=== PATIENT | male | born 1955 | race Hispanic/Latino ===

== ENCOUNTER 2017-02-24 17:54 | Inpatient (IN) ==
[2017-02-24] MEDS ORDERED: NS 1,000 ML IV PRN (18:25)
--- NOTE | 2017-02-24 18:31 | PROVIDER DOCUMENTATION ---
HPI-Neurological Disorder - General Chief Complaint: Stroke-Like Symptoms Stated Complaint: STROKE SX Time Seen by Provider: 02/24/17 18:19 Source: family (SON AT BEDSIDE FOR INTERPRETING) Allergies/Adverse Reactions: Patient Allergies Allergy/AdvReac Type Severity Reaction Status Date / Time No Known Allergies Allergy Verified 02/22/17 13:10 Home Medications: Home Medication List Medication Instructions Recorded Confirmed Last Taken Type ATORVAstatin [Lipitor] 40 mg PO QHS #30 tablet 02/27/17 Unknown Rx Aspirin 325 mg PO DAILY #30 tablet 02/27/17 Unknown Rx - History of Present Illness-Neuro Nature of Presenting Problem: REPORTS, "ABOUT 8 LAST NIGHT HE WAS COMPLAINING ABOUT HIS LEFT SIDE WAS NUMB. HE'S BEEN REALLY SLOW WITH HIS SPEECH AND HIS HEAD HURTS. HIS VISION IS BLURRED IN THE LEFT EYE." Headache Location: reports: frontal (left frontal pain) Severity: reports: mild Onset/Duration: reports: last night Timing: reports: still present Context: reports: none Approximate time patient was last seen normal?: 20:00 (LAST NIGHT) Character of Altered Mental Status: reports: N/A Any recent trauma/injury?: reports: none Character of Deficits: reports: new weakness (left side - arm and leg) New weakness or altered sensation location:: reports: LUE, LLE, left facial Gait Baseline: walks without assistance Associated Symptoms: reports: other (PER FAMILY "SPEECH IS SLOW.") Similar Symptoms Previously?: No Recently seen or treated by another doctor?: No Review of Systems - Adult - REVIEW OF SYSTEMS - ADULT Constitutional: reports: no symptoms reported Eyes: reports: no symptoms reported Ears, Nose, Mouth & Throat: reports: no symptoms reported Cardiovascular: reports: no symptoms reported Respiratory: reports: no symptoms reported Gastrointestinal: reports: no symptoms reported Genitourinary: reports: no symptoms reported Musculoskeletal: reports: no symptoms reported Integumentary: reports: no symptoms reported Neurological: reports: see HPI Psychiatric: reports: no symptoms reported Endocrine: reports: no symptoms reported Hematologic/Lymphatic: reports: no symptoms reported Allergic/Immunologic: reports: no symptoms reported All Other Systems: Reviewed and Negative Past History - Adult - PAST MEDICAL HISTORY-ADULT Review of Records: reports: Old Records Reviewed, Nursing Assessment Review, Medications Reviewed Major Childhood Illnesses: reports: denies history Cardiovascular: reports: HTN, hyperlipidemia Respiratory: reports: denies history Gastrointestinal: reports: denies history Obstetrical/Gynecological: reports: denies history Genitourinary: reports: denies history Musculoskeletal: reports: other (LEFT SHOULDER SURGERY WITH PAIN AND LIMITED ROM SINCE SURGERY WHICH WAS 1999) Neurological: reports: denies history Endocrine/Immune: reports: Diabetes Other Conditions: reports: denies history - PRIOR SURGERIES/PROCEDURES Surgical/Procedure History: reports: other (LEFT SHOULDER REPAIR, HERNIA REPAIR X 4) - IMMUNIZATION STATUS Childhood Immunizations: See Nurse Assessment Flu Vaccine: See Nurse Assessment - FAMILY HISTORY Family History: reviewed, not pertinent - SOCIAL HISTORY Smoking: denies Substance Use: none/never Alcohol Use Frequency: never Living Situation: family Physical Exam- Neurological - Physical Exam-Neuro Initial Vital Signs Reviewed: Yes General Appearance: appears well, mild distress Eye Exam: bilateral eye: normal inspection, PERRL, EOMI (C/O BLURRED VISION SINCE LAST NIGHT) HENMT: normocephalic/atraumatic, moist mucous membranes, normal ENT inspection, TMs normal, pharynx normal Head Injury: no evidence of injury Neck: non-tender, full range of motion, supple Respiratory: chest non-tender, lungs clear, normal breath sounds, no pleuratic chest pain, no respiratory distress, no accessory muscle use Cardiovascular: normal peripheral pulses, regular rate, rhythm, no edema, no gallop, no JVD, no murmur Abdominal Exam: normal bowel sounds, non tender, soft, no organomegaly, no pulsatile mass Lymphatic: no adenopathy Peripheral Pulses: radial (R): 3+, radial (L): 3+ Extremity: other (LEFT NECK/ARM/SHOULDER PAIN THAT IS CHRONIC SINCE SURGERY IN 1999) 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 negative: facial asymmetry, facial droop Coordination/Gait: normal finger to nose (ON RIGHT . PAIN WITH MOVEMENT OF LEFT SHOULDER) Motor/Sensory: no motor deficit, no sensory deficit, no pronator drift Neurologic: grossly normal, focal weakness (LEFT LOWER EXTREMITY WEAKNESS. LEF GRASP <RIGHT) Integumentary: normal color, normal turgor, warm/dry Psych/Mental Status: normal mood/affect, normal thought content, normal thought process, oriented x 3 - Glascow Coma Scale Best Eye Response: (4) open spontaneously Best Verbal Response: (5) oriented Best Motor Response: (6) obeys commands Total Glascow Score: 15 Progress - PLAN OF CARE/RESULTS Progress/Plan/Lab Results: Orders Category Date Time Status Admit - [facility] Routine AdmDCTranf 02/24/17 20:24 Ordered Misc. NRSG Communication Order DIRECTED Care 02/24/17 18:25 Completed Oxygen Therapy- ED Nursing DIRECTED Care 02/24/17 18:25 Completed Saline Loc NOW Care 02/24/17 18:25 Completed CHEST-PORTABLE [RAD] Stat Exams 02/24/17 18:25 Completed HEAD W/O CONTRAST [CT] Stat Exams 02/24/17 18:06 Completed SHOULDER-LEFT [RAD] Stat Exams 02/24/17 18:59 Completed CBC WITH ELECTRONIC DIFF [HEME] Stat Lab 02/24/17 18:10 Completed COMPREHENSIVE METABOLIC PANEL [CHEM] Stat Lab 02/24/17 18:[address]IME WITH INR PL [COAG] Stat Lab 02/24/17 18:[address] [COAG] Stat Lab 02/24/17 18:10 Completed TROPONIN T Stat Lab 02/24/17 18:[address] [URINALYSIS] Stat Lab 02/24/17 19:00 Completed URINE DRUG SCREEN PL Stat Lab 02/24/17 19:00 Completed URINE MICROSCOPIC [URINALYSIS] Stat Lab 02/24/17 19:00 Completed 0.9% Sodium Chloride Inj [Ns] 1,000 ml Med 02/24/17 20:28 Active IV 100 mls/hr 0.9% Sodium Chloride Inj [Ns] 1,000 ml Med 02/24/17 18:25 Discontinued IV As Directed Acetaminophen [Tylenol] Med 02/24/17 20:14 Discontinued 650 mg PO NOW ONE EKG [EKG] Stat Ther 02/24/17 18:25 Draft Transfer/Admit Order [TRANSFER] Routine Transfer 02/24/17 20:28 Completed Result Diagrams: 02/26/17 05:03 02/26/17 05:03 - XRAY 1 XRAY Study: Chest Impression: Normal (NORMAL CHEST XRAY PER RADIOLOGY. NO PNEUMONIA PER RADILOGY REPORT IN EMR) - CT/MRI 1 CT Study: Head Impression: Normal CT Results: NO SAH, NO EPIDURAL OR SUBDURAL HEMATOMA. NO HEMORRHAGE. NEGATIVE CT SCAN - CONSULTS/PCP/HOSPITALIST Notification #1 *Consult/PCP/Hospitalist*: DR. ORTEGA Time Discussed: 20:11 Reason/Comments: ADMIT CVA NO NOT GIVE HEPARIN SQ Consult Disposition: Admit Departure - Departure Date of Disposition Decision: 02/24/17 Time of Disposition Decision: 20:10 DIAGNOSIS: CVA (cerebral vascular accident) Disposition: HOME 01 Certified Medical Emergency: Emergent Condition: Stable - Critical Care Note This patient required my direct & personal management of CC.: No Attestation - Physician/ PRAKASH Attestation Patient care was provided by Advanced Practice Provider:: Yes Advanced Practice Provider:: Nicky Hopkins Advanced Practice Provider documentation review:: The Mid-level provider documentation, treatment plan and medical decision making was reviewed by the physician who agrees with all treatment and medical decision making by the MLP. The physician spent face to face time with patient:: Yes Advanced Practice Provider documentation review:: Supervising physician onsite and consulted in the evaluation and care of this patient. The physician did have a face to face encounter with the patient.
[2017-02-24 18:39] LABS: MANUAL DIFF NEEDED? NO
[2017-02-24 18:43] LABS: BASO% 1.4 % (0.0-0.8); EOS# 0.13 X1000 (0.0-0.7); EOS% 1.8 % (0.0-10.0); HEMATOCRIT 45.2 % (42.0-52.0); HEMOGLOBIN 15.7 g/dL (14.0-18.0); IMM GRAN# 0.02 X1000 (0.0-0.04); IMM GRAN% 0.3 % (0.0-0.5); LYMPH# 3.11 X1000 (1.2-3.4); LYMPH% 42.1 % (20.5-51.1); MCH 31.5 PG (27-31); MCHC 34.7 g/dL (33-37); MCV 90.8 FL (81-99); MONO# 0.73 X1000 (0.11-0.59); MONO% 9.9 % (1.7-9.3); NEUT% 44.5 % (42.2-75.2); PLT 168 X1000 (130-400); RBC 4.98 XMIL (4.7-6.1)
--- NOTE | 2017-02-24 18:52 | Diag Imaging Result Doc PS360 ---
EXAM: HEAD W/O CONTRAST HISTORY: stroke like sym TECHNIQUE: CT brain without. Dose reduction protocol. COMPARISON: None. FINDINGS: No parenchymal hemorrhage. No epidural or subdural hematoma. No subarachnoid hemorrhage. No mass identified on this noncontrasted exam. No hydrocephalus. No sinus opacification. IMPRESSION: No hemorrhage. Negative brain CT without contrast. Electronically signed by Javier Butts 02/24/2017 6:49 PM
--- NOTE | 2017-02-24 19:01 | Diag Imaging Result Doc PS360 ---
EXAM: CHEST-PORTABLE HISTORY: LEFT SIDE WEAKNESS POSS CVA TECHNIQUE: COMPARISON: 02/22/2017 FINDINGS: The lungs are well expanded. The heart is not enlarged. The vessels are not distended. No pneumonia. No pleural effusions identified. IMPRESSION: Negative chest. Electronically signed by Javier Butts 02/24/2017 6:59 PM
[2017-02-24 19:08] LABS: AGAP 11; ALBUMIN 4.1 g/dL (3.5-5.0); ALKALINE PHOSPHATASE 69 U/L (32-122); BUN 16 mg/dL (8-22); CHLORIDE 104 mmol/L (98-107); COSMO 277; GOT 21 U/L (10-34); GPT 15 U/L (10-44); POTASSIUM 4.3 mmol/L (3.5-5.1); SODIUM 138 mmol/L (136-145); TCO2 23 mmol/L (25-35)
[2017-02-24 19:12] LABS: URINE SOURCE CLEAN CATCH
[2017-02-24 19:16] LABS: INR 0.94 (0.86-1.15); PROTIME 13.3 Seconds (12.1-15.5)
[2017-02-24 19:17] LABS: PTT PL 31.8 Seconds (22.6-43.9)
[2017-02-24 19:21] LABS: BILIRUBIN URINE NEGATIVE (NEGATIVE); BLOOD URINE 3+ (NEGATIVE); CLARITY CLEAR (CLEAR); COLOR YELLOW; GLUCOSE URINE NEGATIVE (NEGATIVE); LEUKOCYTES URINE NEGATIVE (NEGATIVE); NITRITE URINE NEGATIVE (NEGATIVE); PH URINE 6.5; PROTEIN URINE NEGATIVE (NEGATIVE); SP GRAVITY URINE 1.005; URINE MICROSCOPIC NEEDED? YES; UROBILINOGEN URINE NORMAL
[2017-02-24 19:22] LABS: UR AMPHETAMINES QUAL NONE DETECTED (NONE DETECT); UR BARBITUATES QUAL NONE DETECTED (NONE DETECT); UR BENZODIAZEPIN QUAL NONE DETECTED (NONE DETECT); UR CANNABINOIDS QUAL NONE DETECTED (NONE DETECT); UR COCAINE QUAL NONE DETECTED (NONE DETECT); UR MDMA QUAL NONE DETECTED (NONE DETECT); UR METHADONE QUAL NONE DETECTED (NONE DETECT); UR METHAMPHETAMINE QUAL NONE DETECTED (NONE DETECT); UR OPIATES QUAL NONE DETECTED (NONE DETECT); UR OXYCODONE QUAL NONE DETECTED (NONE DETECT); UR PCP QUAL NONE DETECTED (NONE DETECT); UR TCA QUAL NONE DETECTED (NONE DETECT)
[2017-02-24 19:24] LABS: URINE EPITHELIAL CELLS <10 /HPF (<10); URINE RBC <10 /HPF (<10); URINE WBC <10 /HPF (<10)
--- NOTE | 2017-02-24 19:45 | Diag Imaging Result Doc PS360 ---
EXAM: SHOULDER-LEFT HISTORY: pain left shou worsng since last night TECHNIQUE: Shoulder three views including an axillary Y-view COMPARISON: 07/07/2015 FINDINGS: No fracture. No dislocation. No separation at the acromioclavicular joint. There has been prior surgery to the shoulder. IMPRESSION: No acute abnormality. Electronically signed by Javier Butts 02/24/2017 7:42 PM
[2017-02-24] MEDS ORDERED: TYLENOL PO ONE (20:14)
--- NOTE | 2017-02-24 21:37 | EKG Report ---
Test Performed on : 02/24/2017 7:50:20 PM Test Reason : CP Blood Pressure : / mmHG Vent. Rate : 058 BPM Atrial Rate : 058 BPM P-R Int : 164 ms QRS Dur : 100 ms QT Int : 406 ms P-R-T Axes : 067 042 058 degrees QTc Int : 398 ms Sinus bradycardia. Incomplete right bundle branch block Borderline ECG When compared with ECG of 22-FEB-2017 16:35, Incomplete right bundle branch block is now present Unconfirmed Result
[2017-02-24] MEDS: NS 1,000 ML IV PRN (22:52)
[2017-02-25] MEDS ORDERED: TYLENOL PO PRN (06:21)
[2017-02-25] MEDS ORDERED: ZOFRAN IV PRN (06:21)
--- NOTE | 2017-02-25 12:28 | Diag Imaging Result Doc PS360 ---
MRI BRAIN W/O CONTRAST - 02/25/2017 INDICATION: cva COMPARISON: Head CT 02/24/2017 FINDINGS: There is no area of restricted diffusion. The ventricles and sulci are normal in size and contour. No intracranial mass or hemorrhage. Midline structures including the optic chiasm and pituitary are normal. IMPRESSION: Negative exam. Electronically signed by Ernesto Leung 02/25/2017 12:26 PM
[2017-02-25] MEDS ORDERED: MOTRIN PO PRN (13:02)
[2017-02-25] MEDS ORDERED: TORADOL IV ONE ×2 (13:02→13:42)
--- NOTE | 2017-02-25 19:26 | HISTORY AND PHYSICAL ---
CHIEF COMPLAINT: Numbness to the left side of his face, slow speech. HISTORY OF PRESENT ILLNESS: This is a 61-year-old male who presented to the emergency room complaining of about 23 hours of numbness to the left side of his face, slow speech and blurred vision in his left eye. He complained of a left frontal headache that has been consistent throughout this time. He did have some weakness to his left arm and left leg. CT scan was performed which revealed no hemorrhage, and a negative brain CT without contrast. Chest x-ray was performed which was negative. He was given Toradol for left shoulder pain and admitted for further evaluation and treatment. PAST MEDICAL HISTORY: Diabetes, hyperlipidemia, hypertension. PAST SURGICAL HISTORY: Left shoulder pain and a hernia repair. SOCIAL HISTORY: He smokes about a half a pack a day. Denies alcohol or illicit drug use. ALLERGIES: No known drug allergies. HOME MEDICATIONS: None. REVIEW OF SYSTEMS: A 14-point review of systems is discussed with the patient, with the son and interpreting. Pertinent positives are stated in the HPI. He denied syncope, dizziness, chest pain, palpitations, shortness of breath, cough, fever, chills, nausea, vomiting, diarrhea, constipation, black or bloody vomitus, black or bloody stools. PHYSICAL EXAMINATION: GENERAL: This is a 61-year-old male who is sitting up in the bed, in no distress. VITAL SIGNS: Blood pressure is 113/59 with a heart rate of 56, respirations are 17, temperature is 98.4 degrees with a room air saturations are 95% to 100%. HEENT: Head is normocephalic, atraumatic. Pupils are equal, round, react to light. EOMs are intact. Sclerae anicteric. Mucous membranes are moist. NECK: Supple. Trachea midline. CARDIOVASCULAR: Regular rate and rhythm. S1 and S2 appreciated. PULMONARY: Breath sounds are clear with no increased work of breathing noted. Chest does rise and fall symmetrically with respiration. GASTROINTESTINAL: Abdomen is soft, nontender, nondistended with bowel sounds in all 4 quadrants. BACK: No CVAT. No spinal tenderness. MUSCULOSKELETAL: Good range of motion to right arm and right leg. Left upper extremity is limited due to prior injury, surgery with chronic pain. EXTREMITIES: No clubbing, cyanosis, or edema. Calves are nontender. Pulses are palpable x4. NEUROLOGIC: Pupils equal, round, react to light. He has no facial droop. Forehead is spared. Equal nasal flaring. No tongue or uvular deviation. He has equal shoulder shrug due to pain and injury to his left shoulder; this is chronic. He has 5/5 [id number] on the right. He is unable to perform on the left secondary to pain. He does attempt to the point of pain and then stops. Head Lineman are right greater than left. He has 5/5 on the right. About 3/5 on the left. He has 5/5 muscle strength on the right lower extremity, about 3/5 on the left. DIAGNOSTICS: WBC is 7.3 with hemoglobin 15.7, hematocrit 45.2, and platelets of 168,000. Sodium is 138, potassium 4.3, BUN 16, creatinine 1, with a glucose of 100. Urinalysis is essentially negative with urine drug screen negative. CT of the head reveals no acute processes, as well as chest. Shoulder x-ray on the left reveals no acute abnormality. ASSESSMENT AND PLAN: 1. Probable cerebrovascular accident with left-sided weakness. 2. Diabetes mellitus. 3. Hypertension. 4. Hyperlipidemia. 5. Tobacco use and abuse. 6. Chronic left shoulder pain. The patient will be admitted to the hospital. He will be placed on telemetry. Neuro checks as per protocol. We will obtain a MRI of the brain, as well as a carotid ultrasound. We will start Lipitor daily. The patient's blood sugar is 100 and talking with the family, they state that there was a past diagnosis of diabetes, although he is on no medications. We will monitor daily labs and if needed, we can treat blood sugars. We will consult Physical Therapy. We will consult Learning Disabilities Resource Teacher for discharge planning. For deep vein thrombosis prophylaxis, we will use Lovenox and for gastrointestinal prophylaxis, Prilosec. We will give Toradol for the shoulder pain, as he does take NSAIDs at home with relief. Further treatments pending hospital course. Dictated by REGGIE Faith for Jesus Hilliard MD cc: REGGIE Faith MD
[2017-02-25] MEDS: LIPITOR PO SCH (20:47)
[2017-02-26 06:12] LABS: HEMATOCRIT 41.4 % (42.0-52.0); HEMOGLOBIN 14.1 g/dL (14.0-18.0); MCH 31.3 PG (27-31); MCHC 34.1 g/dL (33-37); MCV 91.8 FL (81-99); MPV 11.2 FL (7.4-10.4); RBC 4.51 XMIL (4.7-6.1)
[2017-02-26] MEDS: PRILOSEC PO SCH (06:15)
[2017-02-26 06:50] LABS: AGAP 9; ALBUMIN 3.7 g/dL (3.5-5.0); ALKALINE PHOSPHATASE 56 U/L (32-122); BUN 18 mg/dL (8-22); CALCIUM 8.3 mg/dL (8.8-10.2); CHLORIDE 109 mmol/L (98-107); COSMO 283; GOT 19 U/L (10-34); GPT 16 U/L (10-44); HDL 29 mg/dL (35-55); LDL 117 mg/dL; POTASSIUM 4.3 mmol/L (3.5-5.1); SODIUM 141 mmol/L (136-145); TCO2 23 mmol/L (25-35); TRIGLYCERIDES 141 mg/dL (39-160); VLDL 28 mg/dL
[2017-02-26] MEDS ORDERED: ASPIRIN PO SCH (09:00)
[2017-02-26] MEDS: LOVENOX SUBQ SCH (09:38)
[2017-02-26] MEDS: ASPIRIN PO SCH (09:38)
--- NOTE | 2017-02-26 10:51 | Extremity Venous Study ---
EXAM: Carotid Ultrasound HISTORY: cva TECHNIQUE: COMPARISON: None. FINDINGS: Right: There is normal flow in the common carotid artery. No stenosis. Normal flow in the internal carotid artery. Peak systolic velocity in the internal carotid artery is 66 cm/s. The ICA/CCA ratio is 0.60. There is antegrade flow both vertebral arteries Left: There is normal flow in the left common carotid artery. No stenosis. There is a tiny amount of plaque in the proximal internal carotid artery. Peak systolic velocity in the internal carotid artery is only 74 cm/s. The ICA/CCA ratio is 0.97 IMPRESSION: Mild stenosis within the proximal left internal carotid artery of less than 40%. Electronically signed by Javier Butts 02/26/2017 10:49 AM
--- NOTE | 2017-02-26 12:41 | CONSULTATION ---
DATE OF CONSULTATION: 02/26/2017 INDICATION FOR THE CONSULTATION: Relative bradycardia. HISTORY OF PRESENT ILLNESS: Mr. Ramirez is a 61-year-old male with a past medical history of diabetes, hypertension, and hyperlipidemia. He presented for evaluation of numbness of the left side of his face, slurred speech, and blurred vision in his left eye. Since that time period these symptoms have all resolved. In addition, he had a brain MRI performed yesterday that has been unremarkable. 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 These all occurred at rest. He has not been symptomatic from this with shortness of breath or with any sort of lightheadedness or passing out spells. He is not aware of any previous episodes of syncope. PAST MEDICAL HISTORY: 1. Diabetes. 2. Hypertension. 3. Hyperlipidemia. SOCIAL HISTORY: He lives at home with his family. He does smoke. No alcohol. No illicit drugs. FAMILY HISTORY: Significant for hypertension. REVIEW OF SYSTEMS: A 10 system review of systems is negative except for those things mentioned in the HPI. PHYSICAL EXAMINATION: Vital signs: During this hospitalization he has been afebrile. His heart rates have been documented in the 40s to 60s. His blood pressure is 101/76. General: He is in no acute distress. HEENT: Oropharynx is moist. Normal dentition. Eye examination shows pink conjunctivae, white sclerae. Neck: Examination shows no obvious thyromegaly or thyroid tenderness. Cardiovascular: He is in a regular rate and rhythm. He has no obvious murmurs. He has no S3. He has no lower extremity edema. Chest: Clear bilaterally. No increased work of breathing. Abdomen: Soft, nontender, nondistended. He has no obvious organomegaly. Skin Exam: Warm and dry throughout without any rashes. Neurological: He is moving all extremities well. No obvious lateralizing deficits. PERTINENT DATA: His carotid ultrasound shows mild stenosis within the proximal left internal carotid artery of less than 40%. Brain MRI results were reviewed. He had an ECG on 02/24 at 1950 showing sinus rhythm, rate of 58 beats per minute. His lab data shows a white count of 5.7. His hematocrit is 41, platelet count 148,000. Sodium 141, potassium 4.3. His BUN is 18, creatinine 0.7. His LDL was 117. He has not had a TSH checked as of yet. ASSESSMENT: Relative bradycardia. PLAN: I will check a TSH. If he has not had an echo checked already, we will do that as well. If this is unremarkable, then he can likely be discharged home with plan for an outpatient JF to be performed for around 1 week ago. I would do this to evaluate for any significant bradyarrhythmias. We will plan on following him up in the office. His LDL does seem to be somewhat elevated and it appears he has been started on atorvastatin in the interim. I would continue the aspirin as well. cc: Shan Bryson MD
[2017-02-26] MEDS: NS 1,000 ML IV PRN (15:25)
[2017-02-26] MEDS: LIPITOR PO SCH (20:04)
[2017-02-27] MEDS: NS 1,000 ML IV PRN (01:33)
[2017-02-27] MEDS: PRILOSEC PO SCH (06:06)
[2017-02-27] MEDS: LOVENOX SUBQ SCH ×2 (09:41→09:47)
[2017-02-27] MEDS: ASPIRIN PO SCH (09:41)
[2017-02-27 11:14] VITALS: BP 129/60
--- NOTE | 2017-02-27 20:02 | DISCHARGE SUMMARY ---
ADMISSION DATE: 02/24/2017 DISCHARGE DATE: 02/27/2017 DIAGNOSES: 1. Left-sided weakness, facial numbness, left-sided blurred vision resolved. 2. Relative bradycardia 3. Diabetes mellitus. 4. Hypertension. 5. Hyperlipidemia. 6. Chronic shoulder pain. 7. Tobacco use and abuse. CONSULTATIONS: Shan Bryson MD of Cardiology. DIAGNOSTICS: 1. 02/24/2017 CT of the head revealed no hemorrhage, no epidural or subdural hematoma, no mass, no hydrocephalus, no sinus opacification. Negative brain CT without contrast. 2. 02/24/2017 chest x-ray with a negative chest. 3. 02/24/2017 shoulder x-ray revealed no acute abnormality. 4. 02/25/2017 brain MRI was a negative examination. 5. 02/26/2017 carotid Doppler revealed right normal flow in the common carotid artery, no stenosis, normal flow in the internal carotid artery, peak systolic velocity in the internal carotid artery is 66 cm/sec, ICA:CCA ratio is 0.60. There is antegrade flow in both vertebral arteries. Left: There is normal flow in the left common carotid artery, no stenosis. There is a tiny amount of plaque in the proximal internal carotid artery. Peak systolic velocity in the internal carotid artery is 74 cm/sec. ICA:CCA ratio is 0.97. Mild stenosis within the proximal left internal carotid artery of less than 40%. HOSPITAL COURSE: Mr. Ramirez presented to the hospital complaining of numbness to the left side of his face, slurred speech and blurred vision in his left eye. The symptoms did resolve shortly after being in the emergency room. They have not recurred. He had an unremarkable CT of the brain as well as MRI of the brain. Shortly after admission he did begin to have bradycardia with heart rates as low as the 30s. He has remained 42-52 over the last 48 hours. He was evaluated by Cardiology and they have made arrangements for the patient to have a 2 week cardiac event detector on an outpatient basis. The patient did walk in the [place] many times over the last 2 days with no episodes of dizziness or weakness. Heart rate did increase to the 60s during the time of walking. He had no further change in left eye vision, no facial weakness. DISCHARGE PHYSICAL EXAMINATION: Cardiovascular: Regular rate and rhythm. S1 and S2 appreciated. Pulmonary: Breath sounds are clear with no increased work of breathing noted. Gastrointestinal: Abdomen is soft, nontender, nondistended with bowel sounds in all 4 quadrants. Extremities: No clubbing, cyanosis, or edema. Calves are nontender. Pulses are palpable x4. Vital Signs: Blood pressure is 129/60 with a heart rate of 46, respirations are 18, temperature is 97.8 degrees oral, room air saturations 98-100%. DISCHARGE MEDICATIONS: 1. Atorvastatin 40 mg p.o. at bedtime. 2. Aspirin 325 mg p.o. daily. FOLLOWUP: 1. He is to follow up Dr. Shan Bryson to obtain a 2 week cardiac event detector and the office will call to arrange followup. 2. He is to follow up with his primary care physician, Dr. Dillon, in next 1-2 weeks or sooner if needed. I did call and speak to Dr. Dillon's nurse who reviewed the patient's chart and his heart rates have been in the 60s consistently during his visits with him. They are aware of the events. DISPOSITION: He is being discharged home in stable condition with family members. TIME SPENT: This is a greater than 30 minute discharge. Dictated by REGGIE Faith for Jesus Hilliard MD cc: REGGIE Faith MD
--- NOTE | 2017-03-02 14:06 | ECHO REPORT ---
ORDER DATE: 02/26/2017 INDICATION: Right bundle branch block. Bradycardia. FINDINGS: 1. Right atrium appears normal in size at 3.7 cm. 2. Mild tricuspid regurgitation. RV systolic pressure of 40. 3. Normal RV size and systolic function. 4. No significant pulmonic insufficiency. 5. Normal left atrial size at 3.5 cm. 6. No mitral valve prolapse. Mild mitral regurgitation. 7. Normal LV size, end-diastolic dimension of 3.7. Normal wall thicknesses with a posterior and interventricular septal wall thickness 1.1 cm each. Normal LV systolic function. Calculated EF of 58% with normal wall motion. 8. Aortic valve opens well. It is trileaflet. No evidence of stenosis or insufficiency. 9. Aorta appears normal in visualized segments. 10. No pericardial effusion seen. 11. For the majority of the study, the patient's heart rate was in the 40s and appeared to be sinus in etiology. cc: MD Fiona Bravo CRNP
== END 2017-02-27 16:11 | disposition home or self-care (01) ==
LOC: P.ED 17:54 → SUATTDRO 21:22 → P.MEDSURG 21:22
PROVIDERS: ATTEND Family Medicine

== ENCOUNTER 2017-03-12 09:34 | Inpatient (IN) ==
[2017-03-12] MEDS ORDERED: ASPIRIN ONE (09:43)
[2017-03-12] MEDS ORDERED: ASPIRIN PO STA (09:50)
[2017-03-12] MEDS ORDERED: NITROGLYCERIN TOP ONE (09:50)
[2017-03-12] MEDS ORDERED: MORPHINE IV ONE (09:50)
[2017-03-12] MEDS ORDERED: ZOFRAN IV ONE (09:50)
[2017-03-12 09:58] LABS: MANUAL DIFF NEEDED? NO
[2017-03-12 10:01] LABS: BASO% 1.6 % (0.0-0.8); EOS# 0.11 X1000 (0.0-0.7); EOS% 1.6 % (0.0-10.0); HEMATOCRIT 43.5 % (42.0-52.0); HEMOGLOBIN 15.1 g/dL (14.0-18.0); IMM GRAN# 0.02 X1000 (0.0-0.04); IMM GRAN% 0.3 % (0.0-0.5); LYMPH# 2.36 X1000 (1.2-3.4); LYMPH% 34.2 % (20.5-51.1); MCH 31.5 PG (27-31); MCHC 34.7 g/dL (33-37); MCV 90.6 FL (81-99); MONO# 0.55 X1000 (0.11-0.59); NEUT% 54.3 % (42.2-75.2); PLT 163 X1000 (130-400)
[2017-03-12 10:15] LABS: AGAP 10; ALKALINE PHOSPHATASE 61 U/L (32-122); BUN 12 mg/dL (8-22); CALCIUM 8.7 mg/dL (8.8-10.2); CHLORIDE 103 mmol/L (98-107); CK PROFILE 144 U/L (24-204); COSMO 277; GOT 35 U/L (10-34); GPT 44 U/L (10-44); MAGNESIUM 2.1 mg/dL (1.5-2.7); POTASSIUM 4.1 mmol/L (3.5-5.1); SODIUM 138 mmol/L (136-145); TCO2 24 mmol/L (25-35)
[2017-03-12 10:16] LABS: INR 0.89 (0.86-1.15); PROTIME 12.8 Seconds (12.1-15.5)
[2017-03-12 10:17] LABS: PTT PL 28.8 Seconds (22.6-43.9)
[2017-03-12] MEDS ORDERED: ATIVAN ONE (10:29)
--- NOTE | 2017-03-12 10:37 | Diag Imaging Result Doc PS360 ---
EXAM: CHEST-PORTABLE - 03/12/2017 HISTORY: CP TECHNIQUE: Portable chest 10:06 AM COMPARISON: 02/24/2017 FINDINGS: Heart size is normal. There is mild prominence of markings at the right base which is stable. The remainder lungs appear clear. There is no dense consolidation, pleural effusion, or pneumothorax identified. IMPRESSION: Mild prominence of right basilar markings, similar to the previous exam. No other evidence of acute disease. Electronically signed by Nando Queen 03/12/2017 10:34 AM
[2017-03-12] MEDS ORDERED: ATIVAN IV ONE (10:40)
[2017-03-12 10:45] LABS: BE -0.5 mmoll (-3.0-3.0); BLOOD TYPE ARTERIAL; DRAW SITE L RADIAL; O2(CT) 19.8 mL/dL (15.0-23.0); PCO2(98.6) 39 mmHg (35-45); PO2(98.6) 72 mmHg (60-100); SAMPLE BLOOD; SAO2 96.6 % (95.0-100.0); THB 15.3 g/dL (11.5-17.4)
[2017-03-12 10:49] LABS: ALLEN TEST YES; MODALITY ROOM AIR
[2017-03-12 11:13] LABS: URINE CULTURE PL NEEDED? NO
[2017-03-12 11:17] LABS: BILIRUBIN URINE NEGATIVE (NEGATIVE); BLOOD URINE 3+ (NEGATIVE); CLARITY CLEAR (CLEAR); COLOR YELLOW; GLUCOSE URINE NEGATIVE (NEGATIVE); LEUKOCYTES URINE TRACE (NEGATIVE); NITRITE URINE NEGATIVE (NEGATIVE); PH URINE 6.5; PROTEIN URINE NEGATIVE (NEGATIVE); UROBILINOGEN URINE NORMAL
[2017-03-12 11:21] LABS: UR AMPHETAMINES QUAL NONE DETECTED (NONE DETECT); UR BARBITUATES QUAL NONE DETECTED (NONE DETECT); UR BENZODIAZEPIN QUAL NONE DETECTED (NONE DETECT); UR CANNABINOIDS QUAL NONE DETECTED (NONE DETECT); UR COCAINE QUAL NONE DETECTED (NONE DETECT); UR MDMA QUAL NONE DETECTED (NONE DETECT); UR METHADONE QUAL NONE DETECTED (NONE DETECT); UR METHAMPHETAMINE QUAL NONE DETECTED (NONE DETECT); UR OPIATES QUAL NONE DETECTED (NONE DETECT); UR OXYCODONE QUAL NONE DETECTED (NONE DETECT); UR PCP QUAL NONE DETECTED (NONE DETECT); UR TCA QUAL NONE DETECTED (NONE DETECT)
[2017-03-12 11:24] LABS: URINE EPITHELIAL CELLS <10 /HPF (<10); URINE WBC <10 /HPF (<10)
[2017-03-12 11:25] LABS: URINE SOURCE CLEAN CATCH
--- NOTE | 2017-03-12 11:57 | PROVIDER DOCUMENTATION ---
This chart was entered by Mai Barry Scribe, acting as scribe for Brianna Dee MD. HPI-Chest Pain - General Chief Complaint: Chest Pain Stated Complaint: CHEST PAIN Time Seen by Provider: 03/12/17 09:39 Source: patient, family Allergies/Adverse Reactions: Patient Allergies Allergy/AdvReac Type Severity Reaction Status Date / Time No Known Allergies Allergy Verified 03/01/17 16:12 Home Medications: Home Medication List Medication Instructions Recorded Confirmed Last Taken Type ATORVAstatin [Lipitor] 40 mg PO QHS #30 tablet 02/27/17 03/01/17 Unknown Rx Aspirin 325 mg PO DAILY #30 tablet 02/27/17 03/01/17 Unknown Rx Amoxicillin/Pot Clavulanate 875 mg PO Q12HR #20 tablet 03/01/17 Unknown Rx [Augmentin] Naproxen Sodium [Naprelan] 500 mg PO BID #60 tbmp.24hr 03/01/17 Unknown Rx - History of Present Illness-CP Nature of Presenting Problem: PT is a 61 y/o M that presents to ED with L sided chest pain, SOB, nausea and L sided numbness. PT is a non-yakut speaking man but was able to understand some questions with the aid of the family in the room. PT states he was walking in his house at onset. PER pt family, PT has hx of [place]. Location: reports: other (L sided) Chest Pain Radiation: reports: arms (L) Quality of Pain: reports: sharp Severity in ED: moderate Onset/Duration: abrupt, 1/2 hour ago Timing: still present Context/Activities at Onset: reports: light activity (WALKING IN HOUSE) Modifying Factors: improves with: nothing Associated Symptoms: reports: nausea, shortness of breath. denies: abdominal pain, back pain, diaphoresis, edema, fever/chills, headache, vomiting Nitro Today/Relief: no nitro taken today Aspirin Treatment Today: no aspirin today Prior Chest Pain/Cardiac Workup: reports: heart attack (3 PRIOR PER PT FAMILY) Similar Symptoms Previously?: Yes Recently Seen Here or By Another Healthcare Provider: Yes Review of Systems - Adult - REVIEW OF SYSTEMS - ADULT Constitutional: denies: chills, fever Eyes: reports: no symptoms reported Ears, Nose, Mouth & Throat: reports: no symptoms reported Cardiovascular: reports: chest pain (L side), syncope (per PT) Respiratory: reports: shortness of breath. denies: cough, wheezing Gastrointestinal: reports: no symptoms reported Genitourinary: reports: no symptoms reported Musculoskeletal: reports: no symptoms reported Integumentary: reports: no symptoms reported Neurological: reports: numbness (pt reports pain and then numbness on his L sided extremities) Psychiatric: reports: no symptoms reported Endocrine: reports: no symptoms reported Hematologic/Lymphatic: reports: no symptoms reported Allergic/Immunologic: reports: no symptoms reported All Other Systems: Reviewed and Negative Past History - Adult - PAST MEDICAL HISTORY-ADULT Review of Records: reports: Old Records Reviewed, Nursing Assessment Review, Medications Reviewed Major Childhood Illnesses: reports: denies history Cardiovascular: reports: HTN, hyperlipidemia Respiratory: reports: denies history Gastrointestinal: reports: denies history Obstetrical/Gynecological: reports: denies history Genitourinary: reports: denies history Musculoskeletal: reports: other Neurological: reports: denies history Endocrine/Immune: reports: Diabetes Other Conditions: reports: denies history - PRIOR SURGERIES/PROCEDURES Surgical/Procedure History: reports: other (LEFT SHOULDER REPAIR, HERNIA REPAIR X 4) - IMMUNIZATION STATUS Childhood Immunizations: See Nurse Assessment Flu Vaccine: See Nurse Assessment - FAMILY HISTORY Family History: reviewed, not pertinent Physical Exam-General - PHYSICAL EXAM-ADULT Initial Vital Signs Reviewed: Yes - CONSTITUTIONAL General Appearance: alert, moderate distress - EYES Eyes: PERRL/EOMI, pink conjunctivae - HEAD, EARS, NOSE, MOUTH & THROAT HENMT: normocephalic/atraumatic, moist mucous membranes, normal ENT inspection - NECK Neck: non-tender, full range of motion, supple - RESPIRATORY Respiratory: chest non-tender, lungs clear, normal breath sounds - CARDIOVASCULAR Cardiovascular: normal peripheral pulses, regular rate, rhythm, no edema, other (reproducable tenderness on L side) - GASTROINTESTINAL (ABDOMEN) Abdominal Exam: normal bowel sounds, non tender, soft - LYMPHATIC Lymphatic: no adenopathy - MUSCULOSKELETAL Back Exam: normal inspection, no CVA tenderness, no vertebral tenderness Extremity: normal range of motion, non-tender - SKIN Integumentary: normal color, normal turgor, warm/dry - NEUROLOGIC Neurologic: medical illustrator II-XII nml as tested, grossly normal - PSYCHIATRIC Psych/Mental Status: normal mood/affect, normal thought content, oriented x 3 Progress - PLAN OF CARE/RESULTS Progress/Plan/Lab Results: Vital Signs - 8 hr 03/12/17 09:40 03/12/17 10:45 03/12/17 10:48 Pulse Rate 62 51 L 52 L Respiratory Rate 24 17 25 H Blood Pressure 159/84 116/62 116/062 O2 Sat by Pulse Oximetry 99 95 98 03/12/17 11:15 Pulse Rate 50 L Respiratory Rate 15 Blood Pressure 108/65 O2 Sat by Pulse Oximetry 96 Laboratory Results - last 24 hr 03/12/17 03/12/17 03/12/17 09:49 09:57 09:57 WBC RBC Hgb Hct MCV MCH MCHC RDW Std Deviation Plt Count MPV Immature Gran % (Auto) Neut % (Auto) Lymph % (Auto) [place] % (Auto) Eos % (Auto) Baso % (Auto) Immature Gran # (Auto) Neut # (Auto) Lymph # (Auto) [place] # (Auto) Eos # (Auto) Baso # (Auto) PT INR APTT (Factor Assay) D-Dimer Specimen Type Sample Site pH pCO2 pO2 HCO3 Base Excess Oxyhemoglobin ABG O2 Sat (Calculated) ABG O2 Saturation ABG Carboxyhemoglobin ABG Methemoglobin Anmol Test A-a O2 Difference Total Hemoglobin Lactate Blood Gas Modality FiO2 % Sodium 138 Potassium 4.1 Chloride 103 Carbon Dioxide 24 L Anion Gap 10 BUN 12 Creatinine 0.7 Estimated GFR/1.73 m2 > 60 BUN/Creatinine Ratio 17 Glucose 130 H POC Glucose 142 H D Calculated Osmolality 277 Calcium 8.7 L Magnesium 2.1 Total Bilirubin 0.40 AST 35 H ALT 44 Alkaline Phosphatase 61 Creatine Kinase 144 Troponin T < 0.010 [id number]-Rtnssnykcob Pept Total Protein 7.0 Albumin 4.0 Globulin 3.0 Albumin/Globulin Ratio 1.0 Urine Source Urine Color Urine Clarity Urine pH Ur Specific [place] Urine Protein Urine Ketones Urine Blood Urine Nitrite Urine Bilirubin Urine Urobilinogen Urine Microscopic RBC Urine WBC Urine Microscopic WBC Ur Epithelial Cells Urine Glucose Urine Opiates Screen Ur Oxycodone Screen Urine Methadone Screen Ur Barbituates Screen Ur Tricyclics Screen Ur Phencyclidine Scrn Ur Amphetamines Screen U Methamphetamines Scrn Urine MDMA Screen U Benzodiazepines Scrn Urine Cocaine Screen U Cannabinoids Screen 03/12/17 03/12/17 03/12/17 09:57 09:57 09:57 WBC 6.90 RBC 4.80 Hgb 15.1 Hct 43.5 MCV 90.6 MCH 31.5 H MCHC 34.7 RDW Std Deviation 13.7 Plt Count 163 MPV 11.0 H Immature Gran % (Auto) 0.3 Neut % (Auto) 54.3 Lymph % (Auto) 34.2 [place] % (Auto) 8.0 Eos % (Auto) 1.6 Baso % (Auto) 1.6 H Immature Gran # (Auto) 0.02 Neut # (Auto) 3.75 Lymph # (Auto) 2.36 [place] # (Auto) 0.55 Eos # (Auto) 0.11 Baso # (Auto) 0.11 PT 12.8 INR 0.89 APTT (Factor Assay) 28.8 D-Dimer 0.48 Specimen Type Sample Site pH pCO2 pO2 HCO3 Base Excess Oxyhemoglobin ABG O2 Sat (Calculated) ABG O2 Saturation ABG Carboxyhemoglobin ABG Methemoglobin Anmol Test A-a O2 Difference Total Hemoglobin Lactate Blood Gas Modality FiO2 % Sodium Potassium Chloride Carbon Dioxide Anion Gap BUN Creatinine Estimated GFR/1.73 m2 BUN/Creatinine Ratio Glucose POC Glucose Calculated Osmolality Calcium Magnesium Total Bilirubin AST ALT Alkaline Phosphatase Creatine Kinase Troponin T Fca-[id number]-[id number] Pept 62 Total Protein Albumin Globulin Albumin/Globulin Ratio Urine Source Urine Color Urine Clarity Urine pH Ur Specific [place] Urine Protein Urine Ketones Urine Blood Urine Nitrite Urine Bilirubin Urine Urobilinogen Urine Microscopic RBC Urine WBC Urine Microscopic WBC Ur Epithelial Cells Urine Glucose Urine Opiates Screen Ur Oxycodone Screen Urine Methadone Screen Ur Barbituates Screen Ur Tricyclics Screen Ur Phencyclidine Scrn Ur Amphetamines Screen U Methamphetamines Scrn Urine MDMA Screen U Benzodiazepines Scrn Urine Cocaine Screen U Cannabinoids Screen 03/12/17 03/12/17 03/12/17 10:22 10:48 10:48 WBC RBC Hgb Hct MCV MCH MCHC RDW Std Deviation Plt Count MPV Immature Gran % (Auto) Neut % (Auto) Lymph % (Auto) [place] % (Auto) Eos % (Auto) Baso % (Auto) Immature Gran # (Auto) Neut # (Auto) Lymph # (Auto) [place] # (Auto) Eos # (Auto) Baso # (Auto) PT INR APTT (Factor Assay) D-Dimer Specimen Type ARTERIAL Sample Site L RADIAL pH 7.40 pCO2 39 pO2 72 HCO3 24.4 Base Excess -0.5 Oxyhemoglobin 91.9 L ABG O2 Sat (Calculated) 19.8 ABG O2 Saturation 96.6 ABG Carboxyhemoglobin 3.90 H ABG Methemoglobin 1.0 Anmol Test YES A-a O2 Difference 29.0 Total Hemoglobin 15.3 Lactate 1.10 Blood Gas Modality ROOM AIR FiO2 % 21.0 Sodium Potassium Chloride Carbon Dioxide Anion Gap BUN Creatinine Estimated GFR/1.73 m2 BUN/Creatinine Ratio Glucose POC Glucose Calculated Osmolality Calcium Magnesium Total Bilirubin AST ALT Alkaline Phosphatase Creatine Kinase Troponin T [id number] Pept Total Protein Albumin Globulin Albumin/Globulin Ratio Urine Source CLEAN CATCH Urine Color YELLOW Urine Clarity CLEAR Urine pH 6.5 Ur Specific [place] 1.010 Urine Protein NEGATIVE Urine Ketones NEGATIVE Urine Blood 3+ A Urine Nitrite NEGATIVE Urine Bilirubin NEGATIVE Urine Urobilinogen NORMAL Urine Microscopic RBC 10-20 A Urine WBC TRACE A Urine Microscopic WBC <10 Ur Epithelial Cells <10 Urine Glucose NEGATIVE Urine Opiates Screen NONE DETECTED Ur Oxycodone Screen NONE DETECTED Urine Methadone Screen NONE DETECTED Ur Barbituates Screen NONE DETECTED Ur Tricyclics Screen NONE DETECTED Ur Phencyclidine Scrn NONE DETECTED Ur Amphetamines Screen NONE DETECTED U Methamphetamines Scrn NONE DETECTED Urine MDMA Screen NONE DETECTED U Benzodiazepines Scrn NONE DETECTED Urine Cocaine Screen NONE DETECTED U Cannabinoids Screen NONE DETECTED Orders Category Date Time Status Cardiac Monitoring DIRECTED Care 03/12/17 09:50 Active Oxygen Therapy- ED Nursing DIRECTED Care 03/12/17 09:50 Active Saline Loc NOW Care 03/12/17 09:50 Active CHEST-PORTABLE [RAD] Stat Exams 03/12/17 09:[address] HEAD W/O CONTRAST [CT] Stat Exams 03/12/17 10:41 Taken ABG [RESP] Routine Lab 03/12/17 10:22 Completed CBC WITH ELECTRONIC DIFF [HEME] Stat Lab 03/12/17 09:57 Completed CK PROFILE [SP CHEM] Stat Lab 03/12/17 09:57 Completed CK PROFILE [SP CHEM] Stat Lab 03/12/17 11:42 Ordered COMPREHENSIVE METABOLIC PANEL [CHEM] Stat Lab 03/12/17 09:57 Completed D-DIMER PL [COAG] Stat Lab 03/12/17 09:57 Completed MAGNESIUM [CHEM] Stat Lab 03/12/17 09:57 Completed PRO B-NATRIURETIC PEPTIDE Stat Lab 03/12/17 09:57 Completed PROTIME WITH INR PL [COAG] Stat Lab 03/12/17 09:[address] [COAG] Stat Lab 03/12/17 09:57 Completed TROPONIN T Stat Lab 03/12/17 09:57 Completed TROPONIN T Stat Lab 03/12/17 11:[address] W/POSS RFLX CULT [URINALYSIS] Stat Lab 03/12/17 10:48 Completed URINE DRUG SCREEN PL Stat Lab 03/12/17 10:48 Completed Aspirin Med 03/12/17 09:43 Discontinued 325 mg .ROUTE .STK-MED ONE Aspirin Med 03/12/17 09:50 Discontinued 325 mg PO STAT STA Lorazepam [Ativan] Med 03/12/17 10:40 Discontinued 0.5 mg IV NOW ONE Lorazepam [Ativan] Med 03/12/17 10:29 Discontinued 2 mg .ROUTE .STK-MED ONE Morphine Med 03/12/17 09:50 Discontinued 4 mg IV NOW ONE Nitroglycerin Med 03/12/17 09:50 Discontinued 0.5 inch TOP NOW ONE Ondansetron [Zofran] Med 03/12/17 09:50 Discontinued 4 mg IV NOW ONE EKG [EKG] Stat Ther 03/12/17 09:50 Ordered EKG [EKG] Stat Ther 03/12/17 11:42 Ordered Result Diagrams: 03/12/17 09:57 03/12/17 09:57 - REASSESSMENT Reassessment #1 Time Reassessed: 11:56 Status: other (I was called to pt's bedside after Morphine given. Pt's SZ resolved when I arrived his room. Img IV Ativan given. No SZ since then.) - EKG 1 Time of EKG reading by physician:: 09:40 EKG Read and Signed by:: Brianna Dee EKG Interpretation (*Must complete 3 of following elements*): Abnormal ( borderline) Rate: 63 Rhythm: normal sinus rhythm [place]: normal QRS: RBB (incomplete RBBB) Comments: BORDERLINE ECG - XRAY 1 XRAY Study: Chest Impression: Normal Comparison with other Films: no changes XRAY Interpretation: mild prominence of right basilar markings similar to prev exam - CONSULTS/PCP/HOSPITALIST Notification #1 *Consult/PCP/Hospitalist*: Dr. Hilliard Time Discussed: 11:55 Consult Disposition: Will see in ED, Admit Departure - Departure Date of Disposition Decision: 03/12/17 Time of Disposition Decision: 11:55 DIAGNOSIS: Chest pain, New onset seizure Disposition: ADMITTED INPATIENT 09 Certified Medical Emergency: Emergent Condition: Stable Referrals and Follow-Ups: Ernesto Dillon [Primary Care Provider] - - Critical Care Note This patient required my direct & personal management of CC.: Yes Total Time (mins): 35 Critical Care Statement: This patient required my direct personal management to treat or rule out processes, the absence of which, could potentiallly result in sudden, clinically significant life or limb threatening deterioration. Attestation - Physician/ PRAKASH Attestation Patient care was provided by Advanced Practice Provider:: No The physician spent face to face time with patient:: Yes Advanced Practice Provider documentation review:: Supervising physician onsite and consulted in the evaluation and care of this patient. The physician did have a face to face encounter with the patient. This chart was documented by the indicated scribe, (Mai Barry, Ilsa) and accurately reflects the services I performed and decisions made by me, Brianan Dee MD, as attested by the provider's signature.
--- NOTE | 2017-03-12 12:09 | Diag Imaging Result Doc PS360 ---
EXAM: CT HEAD W/O CONTRAST HISTORY: Sudden onset SZ TECHNIQUE: CT of the head without contrast with dose reduction (clarity.) COMMENT: There are no masses, there is no evidence of bleed or abnormal extra-axial fluid collection and there is no evidence of hydrocephalus. There is calcification in the left vertebral and both internal carotid arteries. Compared to 02/24/2017 there has been no significant change in the appearance of the brain. The visualized paranasal sinuses are clear. IMPRESSION: No evidence of acute intracranial disease. Electronically signed by Arturo Dorsey 03/12/2017 12:07 PM
--- NOTE | 2017-03-12 12:11 | EKG Report ---
Test Performed on : 03/12/2017 09:40:27 AM Test Reason : 2 hour repeat Blood Pressure : / mmHG Vent. Rate : 063 BPM Atrial Rate : 063 BPM P-R Int : 188 ms QRS Dur : 094 ms QT Int : 406 ms P-R-T Axes : 055 012 027 degrees QTc Int : 415 ms Normal sinus rhythm. Incomplete right bundle branch block Borderline ECG When compared with ECG of 01-MAR-2017 19:56, No significant change was found Unconfirmed Result
--- NOTE | 2017-03-12 12:12 | EKG Report ---
Test Performed on : 03/12/2017 12:01:34 PM Test Reason : CHEST PAIN Blood Pressure : / mmHG Vent. Rate : 046 BPM Atrial Rate : 046 BPM P-R Int : 194 ms QRS Dur : 098 ms QT Int : 454 ms P-R-T Axes : 056 015 039 degrees QTc Int : 397 ms Sinus bradycardia. Otherwise normal ECG When compared with ECG of 12-MAR-2017 09:40, (Unconfirmed) No significant change was found Unconfirmed Result
[2017-03-12] MEDS ORDERED: NS 1,000 ML ONE (19:21)
[2017-03-12] MEDS ORDERED: DOPAMINE 800 MG/D5W (PARKWAY ONLY!) 800 MG/250 ML IV.SOLN IV SCH (19:30)
[2017-03-12] MEDS: NS 1,000 ML IV SCH (19:30)
[2017-03-13] MEDS: NS 1,000 ML IV SCH ×3 (01:10→19:58)
--- NOTE | 2017-03-13 03:48 | PROGRESS NOTE ---
DATE: 03/12/2017 ADDENDUM The patient currently is calm. He presented to the ER with chest pain. He was just in the hospital with similar symptoms. He was noted to have a low heart rate with chest pain, ruled out for OH completely. He will be admitted to ICU and will follow. cc: Jesus Hilliard MD
[2017-03-13] MEDS: MOTRIN PO PRN (14:31)
[2017-03-14] MEDS: NS 1,000 ML IV SCH ×4 (02:29→23:43)
[2017-03-14] MEDS: MOTRIN PO PRN (02:30)
--- NOTE | 2017-03-14 09:32 | PROGRESS NOTE ---
DATE: 03/13/2017 SUBJECTIVE: Patient without any new complaints. OBJECTIVE: Vital signs reviewed. He is afebrile. Blood pressure is stable. Heart rate stable in the upper 40s to low 50s. General: The patient is lying in bed. He appears to be in no distress. HEENT: Normocephalic, atraumatic. Neck supple. CV: Bradycardic. Chest clear. Abdomen soft. Extremities: Moves all extremities. ASSESSMENT: 1. Bradycardia. 2. Chest wall pain. 3. Left shoulder pain. PLAN: We will continue the patient in the hospital. We will transition to the floor on telemetry. Further orders as needed. We will get physical therapy involved. cc: Jesus Hilliard MD
[2017-03-14] MEDS ORDERED: ASPIRIN PO SCH (10:45)
[2017-03-14] MEDS ORDERED: ASPIRIN EC ONE (11:07)
[2017-03-14] MEDS: ASPIRIN PO SCH (11:17)
--- NOTE | 2017-03-14 14:02 | CONSULTATION ---
DATE OF CONSULTATION: 03/14/2017 Consultation: Chest discomfort. Mr. Bashir Ramirez is a 61-year-old, gentleman, his translated for me, who has had a couple of episodes of chest discomfort. This was last week. He had an episode of chest pain which he describes as sharp in character, in the left mammary region and retrosternal region. Subsequently he had more chest discomfort which he describes as severe with radiation to the left arm. The pain in the left arm was mild compared to his retrosternal chest discomfort. Not associated with any diaphoresis. There is no nausea or vomiting. REVIEW OF SYSTEMS: Fourteen point review of systems was done.GI: There is no history of nausea, vomiting, diarrhea. There is no history of melena. Central nervous system: No focal weakness to suggest a CVA or TIA. Genitourinary: There is no dysuria or hematuria. Respiratory: There is no history of cough, expectoration, hemoptysis. There is no history of fevers or chills. Endocrine: Stable. PAST MEDICAL HISTORY: Hypercholesteremia. CURRENT MEDICATIONS: Aspirin and Lipitor. ALLERGIES: He is not known to be allergic to any medications. SOCIAL HISTORY: He smokes a pack of cigarettes a day. There is no history of alcohol abuse. PHYSICAL EXAMINATION: Vital Signs: Blood pressure was 120/58. Cardiovascular System: Normal jugular venous pressure. There no thyromegaly. There is no carotid bruit. First and second heart sounds heard. There is no S3, S4 or gallop. Respiratory System: Normal air entry. There are no crepitations or rhonchi. Abdomen: Soft, nontender. There was no guarding or rigidity. Bowel sounds were heard. Central nervous system: Alert and was moving all 4 extremities. Extremities: Examination of extremities revealed no pedal edema. HEENT: Atraumatic, normocephalic. Pupils were equal and reacting to light. ASSESSMENT AND PLAN: Mr. Bashir Ramirez is a 61-year-old, gentleman who is smoker and has hypercholesterolemia. Comes with complaints of chest pains as described above. His cardiac enzymes were negative. We will set him up to undergo an echocardiogram to assess cardiac and valvular function. In addition, we will set him up to undergo a CT angiogram of his coronary arteries to rule out obstructive coronary artery disease. Thank you for the consult. We will follow hospital course. cc: MD Jesus Woodard MD
--- NOTE | 2017-03-14 14:50 | PROGRESS NOTE ---
DATE: 03/14/2017 SUBJECTIVE: Patient without any new complaints. He is sitting in the chair watching television. OBJECTIVE: Vital Signs: Reviewed. He is afebrile. Blood pressure is stable. Heart rate stable. General: Patient is awake, alert. He is in no respiratory distress. He has no edema in his lower extremities. ASSESSMENT: 1. Bradycardia. 2. Left shoulder pain. PLAN: Will move him out of the ICU to the floor. Will continue to follow. Further orders as needed. cc: Jesus Hilliard MD
[2017-03-14] MEDS: TOPROL XL PO SCH (21:43)
[2017-03-14] MEDS: LIPITOR PO SCH (21:43)
[2017-03-15] MEDS: NS 1,000 ML IV SCH ×3 (06:25→19:47)
[2017-03-15] MEDS: TOPROL XL PO SCH ×2 (09:26→21:55)
[2017-03-15] MEDS: ASPIRIN PO SCH (09:26)
--- NOTE | 2017-03-15 20:08 | PROGRESS NOTE ---
DATE: 03/15/2017 SUBJECTIVE: Patient at this point has no complaints. Denies any chest pain or palpitations. OBJECTIVE: Vital Signs: Reviewed. Temperature 98 degrees, pulse 40-46, BP 112/57. General: Patient is awake, alert. He is in no distress. Neck: Supple. CV: Bradycardia. Chest: Clear. Abdomen: Soft. Extremities: Moves all extremities. Neurologic: No changes. LABS: Reviewed. ASSESSMENT: 1. Chest pain. Uncertain if this is cardiac in nature. 2. Bradycardia. 3. Left shoulder pain. PLAN: We will continue the patient in the hospital. Cardiology has been consulted. He is scheduled for a cardiac CT in the a.m. cc: Jesus Hilliard MD
[2017-03-15] MEDS: LIPITOR PO SCH (21:55)
[2017-03-16] MEDS: NS 1,000 ML IV SCH (03:04)
[2017-03-16] MEDS: ASPIRIN PO SCH (08:56)
[2017-03-16] MEDS: TOPROL XL PO SCH (08:56)
[2017-03-16] MEDS: MOTRIN PO PRN (09:42)
--- NOTE | 2017-03-16 10:12 | Diag Imaging Result Doc PS360 ---
EXAM: CT ANGIOGRAM HEART W/WO CONT - 03/16/2017 HISTORY: cp TECHNIQUE: This is an over read of CT coronary angiogram for evaluation of the visualized portions of the lungs, mediastinum, and upper most abdomen near the heart. The CT angiogram itself is interpreted separately by cardiology. COMPARISON: CT angiogram pulmonary arteries 03/01/2017 FINDINGS: The visualized lungs near the heart show COPD changes similar to the previous exam. There is some hazy dependent atelectasis at the visualized right lower lobe. There is a possible small right pleural effusion which is partially visualized. The visualized mediastinum and upper most abdomen show no acute changes. There is a small cyst at the dome of liver which is stable. IMPRESSION: COPD changes. Hazy dependent atelectasis at the visualized right lower lobe. Possible small right pleural effusion. Electronically signed by Nando Queen 03/16/2017 10:09 AM
[2017-03-16] MEDS ORDERED: NITROGLYCERIN LINGUAL SPRAY ONE (12:39)
--- NOTE | 2017-03-16 12:47 | CTA CORONARY ---
PROCEDURE NAME: - PROCEDURES: 1. CT coronary angiography. 2. CT left ventriculography. TECHNIQUE: Informed consent was obtained from the patient. Intravenous access was established. Ninety milliliters of iodinated contrast was given per standard protocol. Images were acquired at 0.6 mm multislice intervals, presented for review. FINDINGS: Calcium score was 0. 1. Left ventricular ejection fraction 58%. 2. Pulmonary arteries in the proximal presented segment did not reveal any evidence of obstruction. 3. Ascending aorta was normal. 4. There was no dissection noted. 5. Aortic valve leaflets are trileaflet. 6. Left ventricular ejection fraction 58%. CORONARY ANATOMY: 1. The right coronary artery was a dominant vessel. The ostium mid distal right coronary artery was normal. The PDA was a small caliber long vessel, tortuous without any significant stenosis. The posterolateral branch of the right coronary artery was a small caliber, long vessel without any significant stenosis. 2. Left main artery was a large vessel and was normal. The left anterior descending artery was a large vessel. It was normal in the proximal, mid distal segment and coursed around the apex without any significant stenosis. 3. Diagonal arteries. The 1st diagonal artery, the 2nd diagonal artery, and the 3rd diagonal artery were small-caliber vessels, long without any significant stenosis. 4. The circumflex arterial system was nondominant. The proximal circumflex artery was normal. 5. The 1st obtuse marginal artery was a smaller caliber, long vessel without any significant stenosis. The circumflex artery continued as obtuse marginal artery distally. It was a small- caliber vessel without any significant stenosis. CONCLUSIONS: 1. No significant obstructive coronary artery disease. 2. Right coronary artery was dominant and normal. 3. Left main was normal. 4. Left anterior descending artery coursed around the apex and was normal. 5. Circumflex arterial system was nondominant and normal. 6. Left ventricular ejection fraction 58%. RECOMMENDATIONS: Medical management. cc: MD Jesus Woodard MD Dr. Powell
[2017-03-16 16:11] VITALS: BP 120/69
--- NOTE | 2017-03-17 08:30 | DISCHARGE SUMMARY ---
ADMISSION DATE: 03/12/2017 DISCHARGE DATE: 03/16/2017 DIAGNOSES: 1. Chest pain. 2. Bradycardia. 3. Left shoulder pain, chronic. DIAGNOSTICS: On 03/12/2017 chest x-ray revealed mild prominence of right basilar markings similar to previous exam. No evidence of acute disease. On 03/12/2017 CT of the head, no evidence of acute intracranial disease. On 03/16/2017 CTA of the heart with and without contrast revealed COPD changes, hazy dependent atelectasis at the visualized right lower lobe, possible small right pleural effusion with coronary findings. Angiography revealed a calcium score of 0 with a left ventricular ejection fraction of 58%. Pulmonary arteries did not reveal any evidence obstruction. Ascending aorta was normal. No dissection noted. Aortic valve leaflets are trileaflet. Conclusions: No significant obstructive coronary artery disease. Right coronary artery was dominant, normal. Left main was normal. LAD artery coursed around the apex and was normal. Circumflex arterial system was nondominant and normal. HOSPITAL COURSE: Mr. Ramirez presented to the emergency room complaining of chest pain. He states the chest pain is left-sided, noted just behind the right breast, and it does go over to the left axilla and left shoulder area. This does come and go. In fact, he has had multiple admissions for this. He ruled out with troponins. CT angiography was negative with report above. Dr. Kat was consulted. He did begin Toprol to his regimen. Of note, Mr. Ramirez has had a left shoulder injury in the past for which he underwent surgical repair. He has had chronic left shoulder and left axillary pain since this injury. DISCHARGE PHYSICAL EXAMINATION: General: This is a 61-year-old male who is up walking in the room, in no distress. Vital Signs: Blood pressure is 123/67, with a heart rate of 51, respirations are 18, temperature is 97.7 degrees oral, with room air saturations of 99 to 100%. Cardiovascular: Regular rate and rhythm. S1 and S2 appreciated. Pulmonary: Breath sounds are clear. No increased work of breathing noted. Gastrointestinal: Abdomen is soft, nontender, nondistended. Bowel sounds in all 4 quadrants. Extremities: No clubbing, cyanosis, or edema. Calves nontender. Pulses are palpable x4. Neurologic: He is alert and oriented x3.. DISCHARGE MEDICATIONS: Aspirin 325 p.o. daily, Lipitor 40 p.o. at bedtime, and Toprol-XL 25 b.i.d. DISCHARGE ACTIVITY: As tolerated. FOLLOWUP: He needs to follow up with cardiology in the next 1-2 weeks. I believe he may still have an appointment pending with Dr. Bryson in cardiology that was made on discharge of his last admission. He has been instructed to call to be seen sooner or return to the ER for recurrent chest pain, shortness of breath, palpitations, dizziness ,syncope, PND, orthopnea, or any questions or concerns that he may have. He is being discharged home in stable condition with family members. TIME SPENT: This is a greater than 30 minute discharge. Dictated by REGGIE Faith for Jesus Hilliard MD cc: REGGIE Faith MD
--- NOTE | 2017-04-03 10:19 | HISTORY AND PHYSICAL ---
CHIEF COMPLAINT: Chest pain. HISTORY OF PRESENT ILLNESS: The patient is a 61-year-old, non-Maori speaking male, who presents to the emergency department. 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 They note he is having left- sided chest pain, shortness of breath, nausea, and left-sided numbness. The family notes that he has a history of an DC. He was walking around in the house when the symptoms started. ALLERGIES: No known drug allergies. MEDICATIONS: Lipitor 40, aspirin 325, Augmentin 875 b.i.d., Naprelan 500 b.i.d. REVIEW OF SYSTEMS: As noted above. Patient has a history of heart disease with a previous DC. Unable to ascertain if this pain is similar to his previous DC; that seems to be lost in translation. He does seem to complain of shortness of breath and nausea but denies any fevers, chills, cough, congestion. Denies any production to the cough. Denies PND or orthopnea. Denies pedal edema. Denies any sick contacts. Denies any vomiting. Denies hematochezia, hematemesis. Denies melena, constipation, or diarrhea. Denies any swelling in his lower extremities. PAST MEDICAL HISTORY: Hypertension, hyperlipidemia, known coronary artery disease with 3 previous MIs, positive for diabetes, history of left shoulder repair, history of hernia repair. FAMILY HISTORY: No family history of cardiac disease. SOCIAL HISTORY: He lives at home. He does not smoke or drink. PHYSICAL EXAMINATION: VITAL SIGNS: Reviewed. Pulse 51-60, respiratory 17-24, BP 116/62 to 159/84, saturation 95 to 99% on room air. GENERAL: Patient is awake, alert. The family notes that he is oriented. He is in no respiratory distress currently. HEENT: Normocephalic, atraumatic. CORIE. NECK: Supple. No JVD. CV: Regular rate. No murmurs. CHEST: Clear, nonlabored. No wheezing. ABDOMEN: Soft, nondistended. EXTREMITIES: Moves all extremities. No edema. NEUROLOGIC: No focal changes. He is awake, alert, and appears oriented x3. SKIN: Warm and dry. No rashes. LABS: CMP normal with the exception of glucose of 142. First set of cardiac enzymes are negative. CBC normal. ASSESSMENT: 1. Chest pain in a patient with known history of coronary disease. 2. Diabetes. 3. Known coronary artery disease. 4. High cholesterol. PLAN: We will admit patient to the hospital, rule out DC, and follow. Will continue his home medications. Further orders as needed. cc: Jesus Hilliard MD
--- NOTE | 2017-04-28 19:13 | ED EKG INTERP ---
This chart was entered by Mai Barry Scribe, acting as scribe for Brianna Dee MD. EKG Interpretation - EKG Time of EKG reading by physician:: 12:01 EKG Read and Signed by:: Brianna Dee EKG Interpretation (*Must complete 3 of following elements*): Normal Rate: 46 Rhythm: sinus bradycardia [place]: normal QRS: normal Attestation - Physician/ PRAKASH Attestation Patient care was provided by Advanced Practice Provider:: No The physician spent face to face time with patient:: Yes Advanced Practice Provider documentation review:: Supervising physician onsite and consulted in the evaluation and care of this patient. The physician did have a face to face encounter with the patient. This chart was documented by the indicated scribe, (Mai Barry Scribe) and accurately reflects the services I performed and decisions made by me, Brianna Dee MD, as attested by the provider's signature.
== END 2017-03-16 16:54 | disposition home or self-care (01) ==
LOC: P.ED 09:34 → P.EDIPHOLD 13:13 → P.ICU 14:41 → P.MEDSURG 03-14 12:08
PROVIDERS: ADMIT Family Medicine; ATTEND Family Medicine